=== PATIENT | female | born 1965 | race Caucasian/White ===

== ENCOUNTER 2018-09-05 08:00 | Outpatient (CLI) | payer OTHER | END 2018-09-05 09:00 | disposition home or self-care (01) | LOC: D.MAMMO 08:00 | PROVIDERS: ATTEND Family Medicine | DX: Z12.31 Encounter for screening mammogram for malignant neoplasm of breast (principal) ==

== ENCOUNTER → 2019-01-04 14:27 | Outpatient (CLI) | payer OTHER | END | disposition home or self-care (01) | LOC: D.LABREF 14:27 | PROVIDERS: ATTEND Orthopaedic Surgery | DX: M17.11 Unilateral primary osteoarthritis, right knee (principal) ==

== ENCOUNTER 2019-01-15 18:36 | Inpatient (IN) | payer OTHER ==
[~2019-01-15] VITALS: Ht 167.6 cm; Wt 97.7 kg
[2019-02-06] MEDS ORDERED: ULTRAM50 MG PO (16:00)
[2019-02-06] MEDS ORDERED: ANSAID50 MG PO (16:01)
[2019-02-06] MEDS ORDERED: CYMBALTA60 MG PO (16:01)
[2019-02-07] MEDS ORDERED: PEPCID AC20 MG PO (10:41)
[2019-02-07 11:29] LABS: BASOPHILS 0.4 % (0-2); EOSINOPHILS 2.6 % (0-7); HEMATOCRIT 48.3 % (36.0-48.0); HEMOGLOBIN 16.5 g/dL (12-16); IMMATURE GRANULOCYTES 0.2 % (0-5); LYMPHOCYTES 23.7 % (15-50); MCH 33.6 pg (26.0-34.0); MCHC 34.2 g/dL (31.0-37.0); MCV 98.4 fL (80.0-100.0); MEAN PLATELET VOLUME 10.2 fL (7.4-10.4); MONOCYTES 7.2 % (2-11); NEUTROPHILS 65.9 % (40-80); PLATELET COUNT 230 10x3/uL (130-400); RBC 4.91 10x6/uL (4.00-5.40); RDW 17.8 % (11.5-14.5); WBC 9.7 10x3/uL (4.8-10.8)
[2019-02-07 11:48] LABS: APTT 34.7 SECONDS (22.8-39.4); INR 1.01 (0.85-1.17); PROTIME 12.8 SECONDS (11.6-15.0)
[2019-02-07 11:53] LABS: ANION GAP 9.3 mmol/L (8-16); CALCIUM 9.5 mg/dL (8.5-10.1); CARBON DIOXIDE 28.4 mmol/L (21.0-32.0); POTASSIUM - SERUM 3.7 mmol/L (3.5-5.1)
[2019-02-07 12:32] LABS: APPEARANCE SL CLDY (CLEAR); BILIRUBIN NEGATIVE (NEGATIVE); COLOR AMBER (YELLOW); GLUCOSE NEGATIVE (NEGATIVE); KETONE NEGATIVE (NEGATIVE); NITRITE NEGATIVE (NEGATIVE); PROTEIN TRACE mg/dL (NEGATIVE); RED CELLS - URINE 0-5 /hpf (0-5); SPECIFIC GRAVITY 1.025 (1.005-1.020); WHITE CELLS - URINE 0-5 /hpf (NEGATIVE)
[2019-02-07 12:33] LABS: BACTERIA MANY /hpf (NEGATIVE); CALCIUM OXALATE CRYSTALS 0-5 /hpf (NONE SEEN); MUCUS >1+ /lpf (NONE SEEN)
[2019-02-20] VITALS (8 sets, daily range): BP systolic 114–135; BP diastolic 50–90; Ht 167.6 cm; Wt 97.7 kg
[2019-02-20 10:17] LABS: BASOPHILS 0.7 % (0-2); EOSINOPHILS 5.4 % (0-7); HEMATOCRIT 47.1 % (36.0-48.0); HEMOGLOBIN 15.4 g/dL (12-16); IMMATURE GRANULOCYTES 0.2 % (0-5); LYMPHOCYTES 32.3 % (15-50); MCH 32.8 pg (26.0-34.0); MCHC 32.7 g/dL (31.0-37.0); MCV 100.2 fL (80.0-100.0); MEAN PLATELET VOLUME 10.4 fL (7.4-10.4); NEUTROPHILS 52.4 % (40-80); PLATELET COUNT 225 10x3/uL (130-400); RDW 17.2 % (11.5-14.5); WBC 5.6 10x3/uL (4.8-10.8)
[2019-02-20] MEDS ORDERED: CIPRO500 MG PO (10:26)
[2019-02-20 10:27] LABS: INR 0.99 (0.85-1.17); PROTIME 12.6 SECONDS (11.6-15.0)
[2019-02-20 10:28] LABS: CALC OSMOLALITY 284 mosm/kg (275-300); CALCIUM 9.1 mg/dL (8.5-10.1); CARBON DIOXIDE 25.5 mmol/L (21.0-32.0); CHLORIDE - SERUM 107 mmol/L (98-107); CREATININE - SERUM 0.8 mg/dL (0.6-1.3); GLUCOSE 93 mg/dL (74-106); POTASSIUM - SERUM 3.8 mmol/L (3.5-5.1); SODIUM 143 mmol/L (136-145); UREA NITROGEN 13 mg/dL (7-18); eGFR NON AFRICAN AMERICAN 78 mL/min (90-120)
[2019-02-20 11:26] LABS: APPEARANCE SL CLDY (CLEAR); BILIRUBIN NEGATIVE (NEGATIVE); COLOR DK YELLOW (YELLOW); GLUCOSE NEGATIVE (NEGATIVE); KETONE NEGATIVE (NEGATIVE); NITRITE NEGATIVE (NEGATIVE); PROTEIN TRACE mg/dL (NEGATIVE); SPECIFIC GRAVITY 1.025 (1.005-1.020); UROBILINOGEN NORMAL (NORMAL)
[2019-02-20 11:27] LABS: BACTERIA MODERATE /hpf (NEGATIVE); YEAST <1+ /hpf (NONE SEEN)
[2019-02-20 11:28] LABS: CALCIUM OXALATE CRYSTALS 0-5 /hpf (NONE SEEN)
--- NOTE | 2019-02-20 19:23 | NUR ---
RESTING QUIETLY IN BED. CPM IN PLACE. DENIES NEEDS. NO CHANGES NOTED.
[2019-02-21] VITALS: BP 108/64
[2019-02-21 04:00] VITALS: BP 117/67
[2019-02-21 06:56] LABS: BASOPHILS 0.5 % (0-2); EOSINOPHILS 3.5 % (0-7); HEMATOCRIT 42.8 % (36.0-48.0); HEMOGLOBIN 13.4 g/dL (12-16); IMMATURE GRANULOCYTES 0.2 % (0-5); MCHC 31.3 g/dL (31.0-37.0); MCV 102.1 fL (80.0-100.0); MEAN PLATELET VOLUME 10.9 fL (7.4-10.4); MONOCYTES 12.1 % (2-11); NEUTROPHILS 63.7 % (40-80); PLATELET COUNT 208 10x3/uL (130-400); RBC 4.19 10x6/uL (4.00-5.40); RDW 17.3 % (11.5-14.5); WBC 6.2 10x3/uL (4.8-10.8)
[2019-02-21 07:20] LABS: CALC OSMOLALITY 278 mosm/kg (275-300); CALCIUM 8.4 mg/dL (8.5-10.1); CARBON DIOXIDE 25.5 mmol/L (21.0-32.0); CHLORIDE - SERUM 105 mmol/L (98-107); CREATININE - SERUM 0.8 mg/dL (0.6-1.3); GLUCOSE 91 mg/dL (74-106); POTASSIUM - SERUM 3.7 mmol/L (3.5-5.1); SODIUM 139 mmol/L (136-145); UREA NITROGEN 15 mg/dL (7-18); eGFR NON AFRICAN AMERICAN 78 mL/min (90-120)
--- NOTE | 2019-02-21 07:49 | NUR ---
AWAKE AND ALERT. ORIENTED X3. NO C/O AT THIS TIME. PLACED ON CPM. LUNGS ARE CLEAR BILATERALLY, NO COUGH NOTED. SKIN IS INTACT WITHOUT REDNESS EXCEPT INCISION TO RIGHT KNEE WHICH HAS A CLEAN DRY DRESSING IN PLACWE. IV TO LEFT FOREARM IS PATENT WTIHOUT REDNESS AT INSERTION SITE. CPM IN PLACE. SCD'S IN PLACE. DENIES NEEDS.
[2019-02-21 08:13] VITALS: BP 134/77
--- NOTE | 2019-02-21 09:45 | NUR ---
REQUESTED AND GIVEN 10MG OXY IR PO FOR C/O RIGHT KNEE PAIN LEVEL 8. WILL MONITOR.
--- NOTE | 2019-02-21 11:30 | NUR ---
IV TO LEFT FOREARM LEAKING. D/C WITH CATHETER INTACT. RESITED TO RIGHT FOREARM AFTER ONE ATTEMPT WITH 22G.
[2019-02-21 12:25] VITALS: BP 133/69
--- NOTE | 2019-02-21 12:27 | MORECARE ---
CASE MANAGEMENT DISCHARGE SUMMARY PATIENT: JONATHAN SCHOFIELD UNIT: [id number] ADM DATE: 02/20/19 AGE: 54 : 61 SEX: F ROOM/BED: D.2206 AUTHOR: LALITA,DOC PHYSICIAN: REFERRING PHYSICIAN: AUSTIN FLOYD DO DATE OF SERVICE: 02/21/19 Discharge Plan Patient Name: JONATHAN SCHOFIELD Facility: [facility]:[place] : 1965 Planned Disposition: Home Anticipated Discharge Date: 02/23/19 Discharge Date: Expected LOS: 3 Initial Reviewer: [email or web address] Initial Review Date: 02/20/2019 Generated: 02/21/19 1:26 pm Comments DCP- Discharge Planning Updated by [email or web address]: Tangela Friend on 02/21/19 11:[address] DC PLAN: Return home her ex will stay with her. Wants HH due to 16 steps to enter home. ANTICIPATED DC NEEDS: HH for PT. CM met with patient to complete initial dc planning assessment. CM educated patient on the CM role and verbal consent given by patient to complete assessment. CM verified patient's address, phone number, and emergency contact phone numbers. Patient lives at home alone and reports she has 16 steps to enter the home. At discharge patient plans to return home and her ex will be staying with her to assist for two weeks. She is requesting HH due to the number of stairs she has to go up. JARRELL signed for [facility] or [facility]. CM placed jarrell in chart and left one with patient. CM discussed availability of home health, rehab services, and medical equipment. Patient denied further known discharge needs at this time. Patient reports her ex will transport her home at time of discharge. CM will continue to follow and will assist as needed with dc plans/needs. She has received her walker, cpm, and bsc prior to hospital admission. Tangela Friend RN, CCM DCPIA - Discharge Planning Initial Assessment Updated by [email or web address]: Tangela Friend on 02/21/19 12:22 pm * Is the patient Alert and Oriented? Yes * How many steps to enter\exit or inside your home? 16 * PCP Dr. Sawant * Pharmacy [facility] * Preadmission Environment Home Alone * ADLs Independent * Equipment Bedside Commode Rolling Walker * Other Equipment CPM * List name and contact numbers for known caregivers / representatives who currently or will assist patient after discharge: Austin Schofield - ex . * Verbal permission to speak to the caregivers and representatives has been obtained from the patient. Yes * Community resources currently utilized Home Health * Please name any agencies selected above. JARRELL signed for [facility] or [facility]. * Additional services required to return to the preadmission environment? Yes * Can the patient safely return to the preadmission environment? Yes * Has this patient been hospitalized within the prior 30 days at any hospital? No Patient Name: JONATHAN SCHOFIELD Page [phone] at 1227 All edits/amendments must be made on the electronic document DICTATION DATE: 02/21/196 CAN WORKER: ANJALI 02/21/196 RPT#: [id number] DC DATE: STATUS: ADM IN [facility] [address] [place] [address] END OF REPORT
--- NOTE | 2019-02-21 12:31 | NUR ---
DRESSING CHANGED TO RIGHT KNEE WITHOUT COMPLICATIONS. INCISION IS CLEAN DRY AND WELL APPROXIMATED WITH ZIP TIES IN PLACE. DENIES NEEDS.
--- NOTE | 2019-02-21 12:35 | MORECARE ---
CASE MANAGEMENT DISCHARGE SUMMARY PATIENT: JONATHAN SCHOFIELD UNIT: [id number] ADM DATE: 02/20/19 AGE: 54 : 61 SEX: F ROOM/BED: D.2206 AUTHOR: LALITA,DOC PHYSICIAN: REFERRING PHYSICIAN: AUSTIN FLOYD DO DATE OF SERVICE: 02/21/19 Discharge Plan Patient Name: JONATHAN SCHOFIELD Facility: [facility]:[place] : 1965 Planned Disposition: Home Anticipated Discharge Date: 02/23/19 Discharge Date: Expected LOS: 3 Initial Reviewer: [email or web address] Initial Review Date: 02/20/2019 Generated: 02/21/19 1:35 pm Comments DCP- Discharge Planning Updated by [email or web address]: Tangela Friend on 02/21/19 11:[address] DC PLAN: Return home her ex will stay with her. Wants HH due to 16 steps to enter home. ANTICIPATED DC NEEDS: HH for PT. CM met with patient to complete initial dc planning assessment. CM educated patient on the CM role and verbal consent given by patient to complete assessment. CM verified patient's address, phone number, and emergency contact phone numbers. Patient lives at home alone and reports she has 16 steps to enter the home. At discharge patient plans to return home and her ex will be staying with her to assist for two weeks. She is requesting HH due to the number of stairs she has to go up. JARRELL signed for [facility] or [facility]. CM placed jarrell in chart and left one with patient. CM discussed availability of home health, rehab services, and medical equipment. Patient denied further known discharge needs at this time. Patient reports her ex will transport her home at time of discharge. CM will continue to follow and will assist as needed with dc plans/needs. She has received her walker, cpm, and bsc prior to hospital admission. Tangela Friend RN, CCM DCPIA - Discharge Planning Initial Assessment Updated by [email or web address]: Tangela Friend on 02/21/19 12:22 pm * Is the patient Alert and Oriented? Yes * How many steps to enter\exit or inside your home? 16 * PCP Dr. Sawant * Pharmacy [facility] * Preadmission Environment Home Alone * ADLs Independent * Equipment Bedside Commode Rolling Walker * Other Equipment CPM * List name and contact numbers for known caregivers / representatives who currently or will assist patient after discharge: Austin Schofield - ex . * Verbal permission to speak to the caregivers and representatives has been obtained from the patient. Yes * Community resources currently utilized Home Health * Please name any agencies selected above. JARRELL signed for [facility] or [facility]. * Additional services required to return to the preadmission environment? Yes * Can the patient safely return to the preadmission environment? Yes * Has this patient been hospitalized within the prior 30 days at any hospital? No External Providers External Provider: [facility] Next Contact Date: Service Request Date: Service Type: Resolution: Reviewer: Comments: Last DP export: 02/21/19 11:27 a Patient Name: JONATHAN SCHOFIELD Page [phone] at 1235 All edits/amendments must be made on the electronic document DICTATION DATE: 02/21/19 1235 CONE TENDER: ANJALI 02/21/19 1235 RPT#: [id number] DC DATE: STATUS: ADM IN [facility] [address] [place] [address] END OF REPORT
--- NOTE | 2019-02-21 12:43 | MORECARE ---
CASE MANAGEMENT DISCHARGE SUMMARY PATIENT: JONATHAN SCHOFIELD UNIT: [id number] ADM DATE: 02/20/19 AGE: 54 : 61 SEX: F ROOM/BED: D.2206 AUTHOR: HALEIGH CELIS PHYSICIAN: REFERRING PHYSICIAN: AUSTIN FLOYD DO DATE OF SERVICE: 02/21/19 Discharge Plan Patient Name: JONATHAN SCHOFIELD Facility: [facility]:[place] : 1965 Planned Disposition: Home Anticipated Discharge Date: 02/23/19 Discharge Date: Expected LOS: 3 Initial Reviewer: MARY ALICE Initial Review Date: 02/20/2019 Generated: 02/21/19 1:43 pm Comments DCP- Discharge Planning Updated by [email or web address]: Tangela Friend on 02/21/19 11:[address] Spoke to Ray with [facility] notifying him of the referral. Tangela Friend RN, KATHIA DCP- Discharge Planning Updated by [email or web address]: Tangela Friend on 02/21/19 11:[address] DC PLAN: Return home her ex will stay with her. Wants HH due to 16 steps to enter home. ANTICIPATED DC NEEDS: HH for PT. CM met with patient to complete initial dc planning assessment. CM educated patient on the CM role and verbal consent given by patient to complete assessment. CM verified patient's address, phone number, and emergency contact phone numbers. Patient lives at home alone and reports she has 16 steps to enter the home. At discharge patient plans to return home and her ex will be staying with her to assist for two weeks. She is requesting HH due to the number of stairs she has to go up. JARRELL signed for [facility] or [facility]. CM placed jarrell in chart and left one with patient. CM discussed availability of home health, rehab services, and medical equipment. Patient denied further known discharge needs at this time. Patient reports her ex will transport her home at time of discharge. CM will continue to follow and will assist as needed with dc plans/needs. She has received her walker, cpm, and bsc prior to hospital admission. Tangela Friend RN, KATHIA DCPIA - Discharge Planning Initial Assessment Updated by [email or web address]: Tangela Friend on 02/21/19 12:22 pm * Is the patient Alert and Oriented? Yes * How many steps to enter\exit or inside your home? 16 * PCP Dr. Sawant * Pharmacy [facility] * Preadmission Environment Home Alone * ADLs Independent * Equipment Bedside Commode Rolling Walker * Other Equipment CPM * List name and contact numbers for known caregivers / representatives who currently or will assist patient after discharge: Austin Schofield - ex . * Verbal permission to speak to the caregivers and representatives has been obtained from the patient. Yes * Community resources currently utilized Home Health * Please name any agencies selected above. JARRELL signed for [facility] or [facility]. * Additional services required to return to the preadmission environment? Yes * Can the patient safely return to the preadmission environment? Yes * Has this patient been hospitalized within the prior 30 days at any hospital? No Last DP export: 02/21/19 11:35 a Patient Name: JONATHAN SCHOFIELD Page [phone] at 1243 All edits/amendments must be made on the electronic document DICTATION DATE: 02/21/19 1243 ARMAMENT REPAIRER: ANJALI 02/21/19 1243 RPT#: [id number] DC DATE: STATUS: ADM IN [facility] [address] [place] [address] END OF REPORT
--- NOTE | 2019-02-21 13:30 | NUR ---
AMBULATED IN HALLWAY WITH PT. INCISION LINE TO RIGHT KNEE IS OOZING AT ONE SITE. AREA CLEANED AND 4X4 WITH ABDOMINAL PAD AND LEANNE WRAP PLACED TO SAME. WILL MONITOR. ALSO REQUESTED AND GIVEN 10MG OXY IR WITH 50MG VISTIRIL PO FOR C/O RIGHT KNEE PAIN LEVEL 10. WILL MONITOR.
--- NOTE | 2019-02-21 18:45 | NUR ---
ATE OVER HALF OF SUPPER. ON CPM AT THIS TIME. DENIES NEEDS. NO CHANGES NOTED.
[2019-02-21 20:00] VITALS: BP 139/93
--- NOTE | 2019-02-21 23:56 | NUR ---
PT RESTING IN BED. EYES CLOSED. NO SIGNS OF DISTRESS. BREATHING EVEN AND UNLABORED. IV SITE RT FA DRESSING CLEAN DRY AND INTACT. NO SIGNS OF INFECTION. SKIN CLEAN DRY AND INTACT. BOWEL SOUNDS ACTIVE. RT KNEE DRESSING CLEAN DRY AND INTACT. TEDS, SCDS, AND PLEXI BOOT ON. WILL CONTINUE PLAN OF CARE. CALL LIGHT IN REACH. BED LOWERED AND LOCKED.
[2019-02-22] VITALS: BP 146/55
[2019-02-22 04:00] VITALS: BP 152/83
--- NOTE | 2019-02-22 05:22 | NUR ---
I have reviewed this patient and I concur with the Shift Assessment completed by the Licensed Practical Nurse today this shift.
[2019-02-22 06:09] LABS: BASOPHILS 0.4 % (0-2); HEMATOCRIT 41.3 % (36.0-48.0); HEMOGLOBIN 13.5 g/dL (12-16); IMMATURE GRANULOCYTES 0.3 % (0-5); LYMPHOCYTES 15.2 % (15-50); MCH 32.5 pg (26.0-34.0); MCHC 32.7 g/dL (31.0-37.0); MEAN PLATELET VOLUME 11.1 fL (7.4-10.4); MONOCYTES 11.4 % (2-11); NEUTROPHILS 70.7 % (40-80); PLATELET COUNT 215 10x3/uL (130-400); RBC 4.15 10x6/uL (4.00-5.40); RDW 16.7 % (11.5-14.5); WBC 7.4 10x3/uL (4.8-10.8)
[2019-02-22 06:12] LABS: MCV 99.5 fL (80.0-100.0)
[2019-02-22 06:33] LABS: CALC OSMOLALITY 276 mosm/kg (275-300); CALCIUM 8.7 mg/dL (8.5-10.1); CARBON DIOXIDE 27.1 mmol/L (21.0-32.0); CHLORIDE - SERUM 104 mmol/L (98-107); CREATININE - SERUM 0.7 mg/dL (0.6-1.3); GLUCOSE 112 mg/dL (74-106); POTASSIUM - SERUM 4.2 mmol/L (3.5-5.1); SODIUM 139 mmol/L (136-145); eGFR NON AFRICAN AMERICAN > 90 mL/min (90-120)
[2019-02-22 06:39] LABS: UREA NITROGEN 8 mg/dL (7-18)
--- NOTE | 2019-02-22 08:00 | NUR ---
IN ROOM. DR FLOYD APPLYING WOUND VAC. NO NEEDS AT THIS TIME. CL IN REACH. WCTM
[2019-02-22] MEDS ORDERED: CIPRO500 MG PO (08:18)
[2019-02-22] MEDS ORDERED: OXYCODONE HCL5 M1 PO (08:19)
[2019-02-22] MEDS ORDERED: ELIQUIS2.5 MG PO (08:19)
[2019-02-22] MEDS ORDERED: VISTARIL50 MG PO (08:20)
[2019-02-22] MEDS ORDERED: SULFAMETHOXAZOL1 TA2 PO (08:22)
[2019-02-22 09:23] VITALS: BP 157/82
--- NOTE | 2019-02-22 12:59 | NUR ---
DR FLOYD NOTIFIED ABOUT WOUND VAC PLUS CONTAINING HALF THE CANNISTER FULL OF BLOOD. WILL BE SWITCHING TO THE REG WOUND VAC. CL IN REACH. NO FURTER NEEDS
[2019-02-22 13:08] VITALS: BP 157/78
--- NOTE | 2019-02-22 15:26 | NUR ---
PATIENT DISCHARGE INSTRUCTIONS GIVEN. QUESTIONS ABOUT MEDICINE (DAVIDE) ANSWERED. DAUGHTER HERE TO ELECTRICAL SYSTEMS ENGINEER.
[2019-02-22 17:42] VITALS: BP 119/77
--- NOTE | 2019-02-22 19:27 | NUR ---
IN BED WITH GUEST AT BEDSIDE. ABLE TO VOICE ALL NEEDS. COMPLAINTS OF PAIN OF 8-9/10 TO KNEE, ON CPM AT THIS TIME. PAIN MEDS GIVEN PER ORDERS. WILL NOTE ANY CHANGE.
[2019-02-22 20:00] VITALS: BP 125/75
[2019-02-23] VITALS: BP 128/82
--- NOTE | 2019-02-23 02:50 | NUR ---
I have reviewed this patient and I concur with the Shift Assessment completed by the Licensed Practical Nurse today this shift.
[2019-02-23 04:00] VITALS: BP 124/72
--- NOTE | 2019-02-23 06:38 | NUR ---
AT 0450, REQUESTED PAIN MEDICATION, BUT WANTED TO HAVE A LOWER DOSE THAN THE PREVIOUS DOSE, OFFERED HER THE 5MG AND SHE WAS WILLING WITH THE VISTARIL COMBINED. AT THIS TIME PT IS ON CPM WITH NO S/S OF ANY ACUTE DISTRESS. WILL NOTE ANY CHANGE.
[2019-02-23 08:34] VITALS: BP 138/91
--- NOTE | 2019-02-23 10:30 | NUR ---
PATIENT SITTING IN CHAIR AT THIS TIME. CL IN REACH. NO FURTHER NEEDS AT THIS TIME. WCTM
[2019-02-23 12:42] VITALS: BP 126/80
[2019-02-23] MEDS ORDERED: BAYER CHEWABLE81 MG PO (14:19)
--- NOTE | 2019-02-23 15:16 | NUR ---
IV THERAPY DC'ED FROM RIGHT FOREARM. TIP INTACT.
--- NOTE | 2019-02-23 15:57 | NUR ---
CHANGED WOUND VAC BACK TO THE PREVENA PLUS.
--- NOTE | 2019-02-23 16:21 | NUR ---
DISCHARGE INSTRUCTIONS GIVEN. PATIENT VERBALIZED UNDERSTANDING. WHEELED OUT BY MYSELF AND HER FATHER. PULLED VEHICLE AROUND.
--- NOTE | 2019-02-23 17:36 | MORECARE ---
CASE MANAGEMENT DISCHARGE SUMMARY PATIENT: JONATHAN SCHOFIELD UNIT: [id number] ADM DATE: 02/20/19 AGE: 54 : 61 SEX: F ROOM/BED: D.2206 AUTHOR: LALITA,DOC PHYSICIAN: REFERRING PHYSICIAN: AUSTIN FLOYD DO DATE OF SERVICE: 02/23/19 Discharge Plan Patient Name: JONATHAN SCHOFIELD Facility: [facility]:[place] : 1965 Planned Disposition: Home Anticipated Discharge Date: 02/23/19 Discharge Date: 02/23/2019 Expected LOS: 3 Initial Reviewer: [email or web address] Initial Review Date: 02/20/2019 Generated: 02/23/19 6:35 pm DCP- Discharge Planning Updated by [email or web address]: Tangela Friend on 02/21/19 11:[address] Spoke to Ray with [facility] notifying him of the referral. Tangela Friend RN, KATHIA DCP- Discharge Planning Updated by [email or web address]: Tangela Friend on 02/21/19 11:[address] DC PLAN: Return home her ex will stay with her. Wants HH due to 16 steps to enter home. ANTICIPATED DC NEEDS: HH for PT. CM met with patient to complete initial dc planning assessment. CM educated patient on the CM role and verbal consent given by patient to complete assessment. CM verified patient's address, phone number, and emergency contact phone numbers. Patient lives at home alone and reports she has 16 steps to enter the home. At discharge patient plans to return home and her ex will be staying with her to assist for two weeks. She is requesting HH due to the number of stairs she has to go up. JARRELL signed for [facility] or [facility]. CM placed jarrell in chart and left one with patient. CM discussed availability of home health, rehab services, and medical equipment. Patient denied further known discharge needs at this time. Patient reports her ex will transport her home at time of discharge. CM will continue to follow and will assist as needed with dc plans/needs. She has received her walker, cpm, and bsc prior to hospital admission. Tangela Friend RN, CCM DCPIA - Discharge Planning Initial Assessment Updated by [email or web address]: Tangela Friend on 02/21/19 12:22 pm * Is the patient Alert and Oriented? Yes * How many steps to enter\exit or inside your home? 16 * PCP Dr. Sawant * Pharmacy [facility] * Preadmission Environment Home Alone * ADLs Independent * Equipment Bedside Commode Rolling Walker * Other Equipment CPM * List name and contact numbers for known caregivers / representatives who currently or will assist patient after discharge: Austin Schofield - ex . * Verbal permission to speak to the caregivers and representatives has been obtained from the patient. Yes * Community resources currently utilized Home Health * Please name any agencies selected above. JARRELL signed for [facility] or [facility]. * Additional services required to return to the preadmission environment? Yes * Can the patient safely return to the preadmission environment? Yes * Has this patient been hospitalized within the prior 30 days at any hospital? No Last DP export: 02/21/19 11:43 a Patient Name: JONATHAN SCHOFIELD Page [phone] at 1736 All edits/amendments must be made on the electronic document DICTATION DATE: 02/23/191734 INVESTMENT EXECUTIVE: ANJALI 02/23/191734 RPT#: [id number] DC DATE:02/23/19 STATUS: DIS IN [facility] [address] [place] [address] END OF REPORT
--- NOTE | 2019-03-07 11:03 | OP ---
PATIENT NAME: JONATHAN SCHOFIELD MEDICAL RECORD: [id number] :[birth year] LOCATION:[facility].2205 ADMISSION DATE:02/20/19 SURGEON: AUSTIN FLOYD DO DATE OF OPERATION: 02/20/2019 PROCEDURE PERFORMED: Right total knee arthroplasty. PREOPERATIVE DIAGNOSIS: Right knee osteoarthritis and severe valgus deformity. POSTOPERATIVE DIAGNOSIS: Right knee osteoarthritis and severe valgus deformity. INDICATIONS: Ms. Schofield is a 54-year-old female who has undergone all manner of nonoperative treatment including bracing and injections for her right knee. It continued to collapse in the valgus and she had continued pain. She is tired of dealing with it and affecting her activities of daily living and wanted something done surgically. I informed her of the risks including infection, bleeding, damage to nerves or vessels, need for further surgery, fracture, failure of implants and blood clots and even . She signed the consent. SURGEON: Austin Floyd DO CLINICAL STAFF RN: Bob Mayfield, advanced practitioner and Bertrand Harrison, certified health care legal assistant. DESCRIPTION OF THE PROCEDURE: The patient was given a block by anesthesia in preoperative area, was taken to the operative suite, laid in supine position, given general anesthetic and LMA was placed. She was given 2 grams of Ancef and 80 mg gentamicin preoperatively. The right lower extremity was then prepped and draped in sterile fashion. A timeout was performed, everyone was in agreeance to the correct side, site and patient and procedure. Once timeout had been performed, the patient was then prepped and draped. The incision was marked out, covered in Ioban over the skin and then incision was made with a 10 blade scalpel down to the capsule. Medial parapatellar approach was then done. Any bleeding was coagulated with Aquamantys at that time and then the knee was brought to extension. The patella was everted and a part of the fat pad was removed. The ACL was removed as well. The saw was then milled down and a 31 patellar prosthesis was sized. The femur was then flexed up and the distal femur was entered. The canal with a drill and the distal femoral cutting guide was put on. A 12-mm of bone was resected in order to resect enough. Lateral femoral condyle was very hypoplastic. The proximal femur was then cut measuring 2 mm off the lateral side due to the deformity there and the rest of the tibia was removed, proximal tibia was removed. The knee was brought to extension and the menisci were removed. Any bleeding was coagulated with the Aquamantys at that time. The 10 extension block then fit very well. The knee was then flexed up and the femur was sized to be a 70, but went to a 67.5 due to the width and move the guide up to 3 mm. The 4-in-1 cutting block was then put on. The femur was cut. Once the femur was cut, the trial was put on and the tibia and tray and poly was floated in. Rotation was then marked, then drilled the patella and the lug holes for the femur. The tibia was then sized and sized to be 71. This was drilled and punched and then extra was put in the tibia. The cement was then mixed. The tibia was thoroughly irrigated and dried and then cement was placed down into the tibia and implants then packed in to place. Excess cement was removed. The femur was then impacted on, poly was put in between them. The knee was brought into extension and the patella was irrigated out and suctioned out and then cement was put in the holes and then on the patellar implant itself OPERATIVE REPORT [id number] JONATHAN SCHOFIELD and agustina was used to open the place. Excess cement was removed. The knee was thoroughly irrigated then and any excess cement was removed. Once the cement had dried, we sized the 12 poly, it fit very well. We put 12 deep dish anterior stabilized the poly and this fit very well, had good medial and lateral stability in flexion and extension and the valgus deformity had been corrected. The knee was then irrigated with a mixture of solution of Betadine 17 mL of Betadine and 500 mL of normal saline. It was sterile Betadine. This sat for 3 minutes in the wound and then suctioned out and then the knee was irrigated with a liter of normal saline. The Luther and then vancomycin, tobramycin powder placed in the wound. The capsule was then closed with #2 Ethibond in a xwkocp-[id number]-fjoxd fashion and the skin was closed with 2-0 Vicryl interrupted fashion. ZipLine was placed on the knee by Bob Mayfield APRN. Adaptic, 4 x 4s, ABD, Webril, Remy wrap, TEETEE hose stockings was placed up to the knee and the patient was awakened and taken to recovery in stable condition. Blood loss was approximately 200 mL. COMPLICATIONS: None. TRANSINT:[id number] Voice Confirmation ID: [id number] DOCUMENT ID: [id number] 03/07/2019 Edited for neri Mayfield. AUSTIN FLOYD DO at 1103 CC: [id number] DICTATION DATE: 02/20/19 1306 SAFETY TRAINER: 02/20/19 2223 DIS IN 02/23/19 [id number] [place] [address]
== END 2019-02-23 16:22 | disposition home health service (06) | DRG 470 ==
LOC: D.SDCHOLD 02-13 07:45 → D.MS 02-20 09:35 → D.SDCHOLD 02-20 09:35 → D.MS 02-20 13:54 → D.SDCHOLD 02-20 17:45 → D.MS 02-22 12:59
PROVIDERS: Internal Medicine Nephrology; ADMIT Orthopaedic Surgery; ATTEND Orthopaedic Surgery
PROC: 0SRC0J9 Replacement of Right Knee Joint with Synthetic Substitute, Cemented, Open Approach (ICD-10-PCS; principal; 2019-02-20 11:30)
DX: M17.11 Unilateral primary osteoarthritis, right knee (principal); N39.0 Urinary tract infection, site not specified; F17.203 Nicotine dependence unspecified, with withdrawal; M21.061 Valgus deformity, not elsewhere classified, right knee; K21.9 Gastro-esophageal reflux disease without esophagitis; F32.9 Major depressive disorder, single episode, unspecified

== ENCOUNTER → 2019-06-29 08:02 | Outpatient (CLI) | payer OTHER ==
[2019-02-20 14:33] VITALS: BMI 34.7
[~2019-06-29 08:02] MED LIST: ANSAID50 MG PO; BAYER CHEWABLE81 MG PO; CIPRO500 MG PO; CYMBALTA60 MG PO; ELIQUIS2.5 MG PO; OXYCODONE HCL5 M1 PO; PEPCID AC20 MG PO; SULFAMETHOXAZOL1 TA2 PO; ULTRAM50 MG PO; VISTARIL50 MG PO
--- NOTE | 2019-07-02 11:19 | EC ---
PATIENT:JONATHAN SCHOFIELD DATE OF SERVICE: 06/29/19 SEX: F MEDICAL RECORD: [id number] DATE OF : [birth year] [facility] AGE OF PATIENT: 54 ADMISSION DATE: 06/29/19 REFERRING PHYSICIAN: INTERPRETING PHYSICIAN: SANDRA HARDEN MD ECHOCARDIOGRAM REPORT ECHO CHARGES 4 ECHO COMPLETE Date: 06/29/19 CLINICAL DIAGNOSIS: HEART MURMRU ECHOCARDIOGRAPHIC MEASUREMENTS (adult normal given) AC root (d.<3.7cm) 2.9 cm LV Septum d (<1.2 cm> 1.3 cm Valve Excursion 1.2 cm LV Septum (systole) 1.5 cm Left Atria (s.<4.0cm> 4.1 cm LVPW d(<1.2cm) 1.4 cm RV (d.<2.3cm) 3.5 cm LVPW (sytole) 1.7 cm LV diastole(<5.6CM) 4.4 cm MV E-F(>70mm/sec) cm LV systole 3.2 cm LVOT Diameter 1.8 cm MV exc.(>10mm) 1.5 cm Est.ejection fraction (50-75%) % DOPPLER: LVIT cm/sec A 70.0 cm/sec E 103.0 cm/sec LA cm/sec RVSP 35 mmHg LVOT 117 cm/sec AOP1/2T m/s Asc. Ao 158 cm/sec RVOT 60 cm/sec RA cm/sec PA 97 cm/sec AV Gradient Peak 10.02mmHg AV Mean 5.71 mmHg AV Area 2.1 cm MV Gradient Peak 5.11 mmHg MV Mean 2.14 mmHg MV Area cm COMMENTS: Document Management Specialist: 2 MARJORIE ADHIKARI Fruit Harvester: 3 Dr. Baptiste TAPE# PACS Pericardial Effusion N DATE OF SERVICE: Adequate 2D, color flow imaging, spectral Doppler, and M-Mode. Borderline LVH. LV internal dimension is normal. Wall motion is normal. EF is greater than or equal to 55%. Aortic valve is tricuspid. No evidence of stenosis by Doppler interrogation. Left atrium mildly dilated at 4.1. Mitral valve shows no prolapse. Trace MR. Right-sided chambers are grossly normal. Mild TR. ECHOCARDIOGRAM REPORT [id number] JONATHAN SCHOFIELD TRANSINT:[id number] Voice Confirmation ID: [id number] DOCUMENT ID: [id number] SANDRA HARDEN MD at 1119 CC: [id number] DICTATION DATE: 07/01/19 121 [employer]: 07/01/19 2218 DEP CLI 06/29/19 [place] [address] [place] [address]
--- NOTE | 2019-07-02 11:19 | EC ---
PATIENT:JONATHAN SCHOFIELD DATE OF SERVICE: 06/29/19 SEX: F MEDICAL RECORD: [id number] DATE OF : [birth year] LOCATION:[facility] AGE OF PATIENT: 54 ADMISSION DATE: 06/29/19 REFERRING PHYSICIAN: INTERPRETING PHYSICIAN: SANDRA HADREN MD ECHOCARDIOGRAM REPORT ECHO CHARGES 4 ECHO COMPLETE Date: 06/29/19 CLINICAL DIAGNOSIS: HEART MURMRU ECHOCARDIOGRAPHIC MEASUREMENTS (adult normal given) AC root (d.<3.7cm) 2.9 cm LV Septum d (<1.2 cm> 1.3 cm Valve Excursion 1.2 cm LV Septum (systole) 1.5 cm Left Atria (s.<4.0cm> 4.1 cm LVPW d(<1.2cm) 1.4 cm RV (d.<2.3cm) 3.5 cm LVPW (sytole) 1.7 cm LV diastole(<5.6CM) 4.4 cm MV E-F(>70mm/sec) cm LV systole 3.2 cm LVOT Diameter 1.8 cm MV exc.(>10mm) 1.5 cm Est.ejection fraction (50-75%) % DOPPLER: LVIT cm/sec A 70.0 cm/sec E 103.0 cm/sec LA cm/sec RVSP 35 mmHg LVOT 117 cm/sec AOP1/2T m/s Asc. Ao 158 cm/sec RVOT 60 cm/sec RA cm/sec PA 97 cm/sec AV Gradient Peak 10.02mmHg AV Mean 5.71 mmHg AV Area 2.1 cm MV Gradient Peak 5.11 mmHg MV Mean 2.14 mmHg MV Area cm COMMENTS: Roofing Subcontractor: 2 MARJORIE ADHIKARI Solid Waste Engineer: 3 Dr. Baptiste TAPE# PACS Pericardial Effusion N DATE OF SERVICE: Adequate 2D, color flow imaging, spectral Doppler, and M-Mode. Borderline LVH. LV internal dimension is normal. Wall motion is normal. EF is greater than or equal to 55%. Aortic valve is tricuspid. No evidence of stenosis by Doppler interrogation. Left atrium is minimally dilated at 4.1 cm. Mitral valve shows no prolapse. Trace MR. Right-sided chambers are grossly normal. Trace TR. ECHOCARDIOGRAM REPORT [id number] JONATHAN SCHOFIELD TRANSINT:[id number] Voice Confirmation ID: [id number] DOCUMENT ID: [id number] SANDRA HARDEN MD at 1119 CC: [id number] DICTATION DATE: 07/01/19 1209 SALES SUPPORT REPRESENTATIVE: 07/01/19 2216 DEP CLI 06/29/19 [place] [id number] [place] [id number]
--- NOTE | 2019-07-03 14:53 | EC ---
PATIENT:JONATHAN SCHOIFELD DATE OF SERVICE: 06/29/19 SEX: F MEDICAL RECORD: [id number] DATE OF : [birth year] LOCATION:[facility] AGE OF PATIENT: 54 ADMISSION DATE: 06/29/19 REFERRING PHYSICIAN: INTERPRETING PHYSICIAN: SANDRA HARDEN MD ECHOCARDIOGRAM REPORT ECHO CHARGES 4 ECHO COMPLETE Date: 06/29/19 CLINICAL DIAGNOSIS: HEART MURMRU ECHOCARDIOGRAPHIC MEASUREMENTS (adult normal given) AC root (d.<3.7cm) 2.9 cm LV Septum d (<1.2 cm> 1.3 cm Valve Excursion 1.2 cm LV Septum (systole) 1.5 cm Left Atria (s.<4.0cm> 4.1 cm LVPW d(<1.2cm) 1.4 cm RV (d.<2.3cm) 3.5 cm LVPW (sytole) 1.7 cm LV diastole(<5.6CM) 4.4 cm MV E-F(>70mm/sec) cm LV systole 3.2 cm LVOT Diameter 1.8 cm MV exc.(>10mm) 1.5 cm Est.ejection fraction (50-75%) % DOPPLER: LVIT cm/sec A 70.0 cm/sec E 103.0 cm/sec LA cm/sec RVSP 35 mmHg LVOT 117 cm/sec AOP1/2T m/s Asc. Ao 158 cm/sec RVOT 60 cm/sec RA cm/sec PA 97 cm/sec AV Gradient Peak 10.02mmHg AV Mean 5.71 mmHg AV Area 2.1 cm MV Gradient Peak 5.11 mmHg MV Mean 2.14 mmHg MV Area cm COMMENTS: Face Burler: 2 MARJORIE ADHIKARI Spinning And Winding Supervisor: 3 Dr. Baptiste TAPE# PACS Pericardial Effusion N DATE OF SERVICE: Adequate 2D, color flow imaging, spectral Doppler, and M-Mode. Mild LVH. LV internal dimension is normal. Wall motion is normal. EF is greater than or equal to 55%. Aortic valve is tricuspid. No evidence of stenosis by Doppler interrogation. Left atrium is upper limits of normal, mildly dilated at 4.1 cm. Mitral valve shows no prolapse. Mild MR. Right-sided chambers are grossly normal. Trace TR. ECHOCARDIOGRAM REPORT [id number] JONATHAN SCHOFIELD TRANSINT:[id number] Voice Confirmation ID: [id number] DOCUMENT ID: [id number] SANDRA HARDEN MD at 1453 CC: [id number] DICTATION DATE: 07/03/19923 INVESTOR RELATIONS ASSOCIATE: 07/[birth year]1944 DEP CLI 06/29/19 [place] [id number] [place] [id number]
== END | disposition home or self-care (01) ==
LOC: D.HCCECHO 08:02
PROVIDERS: ATTEND Internal Medicine Cardiovascular Disease
DX: I20.9 Angina pectoris, unspecified (principal); R01.1 Cardiac murmur, unspecified